=== PATIENT | male | born 1985 | race Caucasian/White ===

== ENCOUNTER 2016-12-11 12:56 | Emergency (ER) | payer OTHER ==
[~2016-12-11] VITALS: Ht 182.8 cm; Wt 68.0 kg
[~2016-12-11 12:56] MED LIST: BACTRIM DS 8001 TA1 PO; CIPROFLOXACIN500 MG PO; CLEOCIN150 MG PO; CLINDAMYCIN HC300 MG PO; CLINDAMYCIN150 MG PO; CLINDAMYCIN300 MG PO; DARVOCET N 1001 TAB PO; HYDROCODONE BIT1 T11 PO; IBU-8800 MG PO; MOTRIN800 MG PO; NAPROSYN500 MG PO; NKHM; PERCOCET 325 MG1 TA2 PO; PREDNICOT20 MG PO; Peridex 473 ML473 ML PO; SYMBICORT1 AE1 IH; TRAMADOL HCL50 MG PO; TYLENOL W/CODEI1 TA2 PO; ULTRAM50 MG PO
[2016-12-11] MEDS ORDERED: CLINDAMYCIN150 MG PO (13:39)
[2016-12-11] MEDS ORDERED: Peridex 473 ML473 ML PO (13:39)
[2016-12-11] MEDS ORDERED: NAPROSYN500 MG PO (13:39)
== END 2016-12-11 14:00 | disposition home or self-care (01) ==
LOC: ED 12:56
DX: K04.7 Periapical abscess without sinus (principal); R03.0 Elevated blood-pressure reading, without diagnosis of hypertension; F17.200 Nicotine dependence, unspecified, uncomplicated; Z88.0 Allergy status to penicillin; Z88.6 Allergy status to analgesic agent

== ENCOUNTER 2017-07-19 19:35 | Inpatient (IN) | payer OTHER ==
[~2017-07-19] VITALS: Ht 182.8 cm; Wt 69.6 kg
[2017-07-19 19:37] VITALS: BP 137/81
[2017-07-19 22:30] VITALS: BP 133/75
[2017-07-20 07:58] LABS: BASO % 0.2 % (0.0-1.0); EOS % 0.1 % (1.0-4.0); HEMATOCRIT 44.5 % (42.0-52.0); HEMOGLOBIN 15.3 g/dl (14.0-18.0); LYMPH # 1.2 10*3/uL (1.3-4.4); LYMPH % 6.6 % (27.0-41.0); MEAN CELL VOLUME 88.5 fl (80.0-94.0); MEAN CORPUSCULAR HGB 30.4 pg (27.0-31.0); MEAN CORPUSCULAR HGB CONC 34.4 g/dl (33.0-37.0); MEAN PLATELET VOLUME 11.8 fl (9.6-12.3); MONO % 5.7 % (3.0-9.0); NEUT # 15.5 10*3/uL (2.3-7.9); PLATELET COUNT AUTOMATED 177 10*3/uL (130-400); RED BLOOD COUNT 5.03 10*6/uL (4.50-5.90); RED CELL DISTRI WIDTH 12.3 % (0-14.5); WHITE BLOOD COUNT 17.9 10*3/uL (4.8-10.8)
[2017-07-20 08:00] VITALS: BP 132/72
[2017-07-20 08:14] LABS: BUN 11 mg/dl (7-24); CHLORIDE 100 mmol/L (98-107); CHOLESTEROL 145 mg/dL (<200); HDL CHOLESTEROL 38 mg/dl (40-60); LDL CHOLESTEROL 98 mg/dL (9-159); PHOSPHOROUS 3.9 mg/dL (2.5-4.9); POTASSIUM 3.7 mmol/L (3.5-5.1); SODIUM 137 mmol/L (136-145); TRIGLYCERIDES 43 mg/dl (<150); VLDL CHOLESTEROL 9 mg/dL (6-40)
[2017-07-20 08:49] LABS: VITAMIN D, 25-HYDROXY 23.6 ng/mL (30-100)
[2017-07-20 12:00] VITALS: BP 128/78
[2017-07-20 16:00] VITALS: BP 143/84
[2017-07-20 20:00] VITALS: BP 132/84
== END 2017-07-21 01:12 | disposition short-term general hospital (02) | DRG 563 ==
LOC: ED 19:35 → 5E 21:10 → EDHOLD 21:10 → 5E 22:12
PROVIDERS: Student in an Organized Health Care Education/Training Program
DX: S82.142A Displaced bicondylar fracture of left tibia, initial encounter for closed fracture (principal); R00.0 Tachycardia, unspecified; W01.0XXA Fall on same level from slipping, tripping and stumbling without subsequent striking against object, initial encounter; Z88.8 Allergy status to other drugs, medicaments and biological substances; Z79.899 Other long term (current) drug therapy; Y93.89 Activity, other specified; Z72.0 Tobacco use; Z88.0 Allergy status to penicillin; Y92.89 Other specified places as the place of occurrence of the external cause; Y99.8 Other external cause status; Z71.6 Tobacco abuse counseling

== ENCOUNTER 2023-02-11 14:36 | Emergency (ER) | payer OTHER ==
[~2023-02-11] VITALS: Wt 72.6 kg
== END 2023-02-11 16:07 | disposition left against medical advice (07) ==
LOC: ED 14:36
DX: K08.89 Other specified disorders of teeth and supporting structures (principal); Z53.21 Procedure and treatment not carried out due to patient leaving prior to being seen by health care provider; Z88.0 Allergy status to penicillin; Z88.8 Allergy status to other drugs, medicaments and biological substances

== ENCOUNTER 2023-12-21 11:46 | Emergency (ER) | payer OTHER ==
[~2023-12-21] VITALS: Ht 182.8 cm; Wt 68.0 kg
[2023-12-21] MEDS ORDERED: SUBOXONE 8 MG-1 EACH BC (12:00)
[2023-12-21] MEDS ORDERED: TYLENOL EXTRA500 MG PO (12:01)
[2023-12-21] MEDS ORDERED: CLINDAMYCIN HC300 MG PO (12:08)
[2023-12-21] MEDS ORDERED: Motrin,Rufen800 MG PO (12:08)
[2023-12-21] MEDS ORDERED: CLINDAMYCIN HCL 300 MG CAPSULE PO ONE (12:10)
[2023-12-21] MEDS ORDERED: Ketorolac Tromethamine 60 MG/2 ML VIAL IM ONE (12:10)
== END 2023-12-21 12:12 | disposition home or self-care (01) ==
LOC: ED 11:46
DX: K04.7 Periapical abscess without sinus (principal); R22.0 Localized swelling, mass and lump, head; F11.10 Opioid abuse, uncomplicated; Z88.0 Allergy status to penicillin; Z88.5 Allergy status to narcotic agent; Z98.890 Other specified postprocedural states